=== PATIENT | male | born 1970 | race Asian ===

== ENCOUNTER 2021-11-13 00:06 | Emergency (ER) | payer OTHER ==
[~2021-11-13] VITALS: Ht 170.2 cm; Wt 74.8 kg
[2021-11-13 01:25] VITALS: BP 112/72; TEMP 98.3
== END 2021-11-13 01:25 | disposition home or self-care (01) ==
LOC: ED 00:06
DX: S43.51XA Sprain of right acromioclavicular joint, initial encounter (principal); X58.XXXA Exposure to other specified factors, initial encounter; Y92.89 Other specified places as the place of occurrence of the external cause
CPT/HCPCS: 96372; 99283; J2175; J2405